=== PATIENT | female | born 1960 | race Caucasian/White ===

== ENCOUNTER 2017-10-20 22:21 | Emergency (ER) | payer OTHER ==
[2017-10-20 22:57] VITALS: BP 152/82; PULSE 99; BMI 33.8
[2017-10-20] MEDS ORDERED: SODIUM CHLORIDE 1,000 ML IV STA (22:57)
--- NOTE | 2017-10-20 22:57 | PDOC ---
History of Present Illness - General History Source: Patient Exam Limitations: No Limitations <Cait Cummings - Last Filed: 10/20/17 22:56> - History of Present Illness Initial Comments: 10/20/17 23:14 Ms. Wasserman is a 57 yo female w/ pmh of <Kaden Saeed - Last Filed: 10/20/17 23:15> - General Chief Complaint: Abscess Boil Stated Complaint: INFECTION Time Seen by Provider: 10/20/17 22:56 Past History - Past Medical History Anemia: No Asthma: Yes Cancer: No Cardiac Disorders: Yes (mvp) CVA: No COPD: No CHF: No Dementia: No Diabetes: Yes (IDDM) GI Disorders: No Disorders: No HTN: Yes Hypercholesterolemia: No Liver Disease: No Seizures: No - Surgical History Abdominal Surgery: No Appendectomy: No Cardiac Surgery: No Cholecystectomy: No Lung Surgery: No Neurologic Surgery: No Orthopedic Surgery: Yes (left carple tunnel, exc bone) - Immunization History Td Vaccination: Yes Immunization Up to Date: No - Suicide/Smoking/Psychosocial Hx Smoking Status: No Smoking History: Never smoked Have you smoked in the past 12 months: No Number of Cigarettes Smoked Daily: 0 Hx Alcohol Use: Yes (rarely) Drug/Substance Use Hx: No Substance Use Type: Alcohol Hx Substance Use Treatment: No <Cait Cummings - Last Filed: 10/20/17 22:56> <Kaden Saeed - Last Filed: 10/20/17 23:15> - Past Medical History Allergies/Adverse Reactions: Allergies Allergy/AdvReac Type Severity Reaction Status Date / Time No Known Drug Allergies Allergy Verified 08/03/13 02:50 sesame seeds Allergy unknown Uncoded 08/02/13 14:40 Home Medications: Ambulatory Orders Aspirin 81 mg PO DAILY 08/02/13 Montelukast Na [Singulair -] 10 mg PO HS 08/02/13 Salmeterol/Fluticasone [Advair 100Mcg/50Mcg -] 1 inh PO BID 08/02/13 Tiotropium [place] [Spiriva] 1 inh PO DAILY 08/02/13 Calcium 250Mg/Vit-D 125 Units [Oscal 250 mg+D -] 2 combo PO DAILY #0 tablet Amlodipine Besylate [Norvasc -] 5 mg PO DAILY 10/20/17 Cholecalciferol (Vitamin D3) [Vitamin D3 -] 400 unit PO WEEKLY 10/20/17 Cyclobenzaprine HCl [Flexeril -] 10 mg PO HS 10/20/17 Fenofibrate 150 mg PO 10/20/17 Insulin Aspart [Novolog] 126 unit SQ AC 10/20/17 Insulin Degludec [Tresiba Flextouch U-100] 75 unit SQ AM 10/20/17 Levothyroxine [Synthroid -] 125 mcg PO DAILY 10/20/17 Losartan/Hydrochlorothiazide [Losartan-Hctz 100-25 mg Tab] 1 each PO DAILY 10/20 Oxycodone HCl/Acetaminophen [Percocet 10-325 mg Tablet] 1 each PO PRN PRN Pravastatin Sodium 20 mg PO HS 10/20/17 predniSONE [Deltasone -] 5 mg PO DAILY 10/20/17 *Physical Exam - Vital Signs Last Vital Signs Temp Pulse Resp BP Pulse Ox 100.6 F H 99 H 19 152/82 96 10/20/17 22:25 10/20/17 22:25 10/20/17 22:25 10/20/17 22:25 10/20/17 22:25 <Kaden Saeed - Last Filed: 10/20/17 23:15> *DC/Admit/Observation/Transfer <Cait Cummings - Last Filed: 10/20/17 22:56> <Kaden Saeed - Last Filed: 10/20/17 23:15> - Discharge Dispostion Condition at time of disposition: Stable
[2017-10-20] MEDS ORDERED: ALBUTEROL SO4 2.5/IPRATROPIUM 0.5 INH SOL 3 ML VIAL.NEB. NEB ONE (23:17)
--- NOTE | 2017-10-20 23:22 | PDOC ---
History of Present Illness - General Chief Complaint: Abscess Boil Stated Complaint: INFECTION Time Seen by Provider: 10/20/17 22:56 - History of Present Illness Initial Comments: 10/20/17 23:17 Ms. Wasserman is a 57 yo female w/ pmh of Asthma, HTN, HLD, DM who presents for evaluation of a 2 day history of abscess to right of umbilicus. She reports that she initially thought it was a pimple and tried to pop it and that she has since experienced 2 days of pain at site with fever today. Denies any other symptoms; Ms. Wasserman reports she checked her blood sugar yesterday and found it in the 120's, however she has neglected to take any medications today or check her blood sugars. The patient denies chest pain, shortness of breath, headache and dizziness. Denies chills, nausea, vomit, diarrhea and constipation. Denies dysuria, frequency, urgency and hematuria. Allergies: NKDA Past History - Past Medical History Allergies/Adverse Reactions: Allergies Allergy/AdvReac Type Severity Reaction Status Date / Time No Known Drug Allergies Allergy Verified 08/03/13 02:50 sesame seeds Allergy unknown Uncoded 08/02/13 14:40 Home Medications: Ambulatory Orders Aspirin 81 mg PO DAILY 08/02/13 Montelukast Na [Singulair -] 10 mg PO HS 08/02/13 Salmeterol/Fluticasone [Advair 100Mcg/50Mcg -] 1 inh PO BID 08/02/13 Tiotropium [place] [Spiriva] 1 inh PO DAILY 08/02/13 Calcium 250Mg/Vit-D 125 Units [Oscal 250 mg+D -] 2 combo PO DAILY #0 tablet Amlodipine Besylate [Norvasc -] 5 mg PO DAILY 10/20/17 Cholecalciferol (Vitamin D3) [Vitamin D3 -] 400 unit PO WEEKLY 10/20/17 Cyclobenzaprine HCl [Flexeril -] 10 mg PO HS 10/20/17 Fenofibrate 150 mg PO 10/20/17 Insulin Aspart [Novolog] 126 unit SQ AC 10/20/17 Insulin Degludec [Tresiba Flextouch U-100] 75 unit SQ AM 10/20/17 Levothyroxine [Synthroid -] 125 mcg PO DAILY 10/20/17 Losartan/Hydrochlorothiazide [Losartan-Hctz 100-25 mg Tab] 1 each PO DAILY 10/20 Oxycodone HCl/Acetaminophen [Percocet 10-325 mg Tablet] 1 each PO PRN PRN Pravastatin Sodium 20 mg PO HS 10/20/17 predniSONE [Deltasone -] 5 mg PO DAILY 10/20/17 Clindamycin [Cleocin -] 300 mg PO TID #21 capsule 10/21/17 Anemia: No Asthma: Yes Cancer: No Cardiac Disorders: Yes (mvp) CVA: No COPD: No CHF: No Dementia: No Diabetes: Yes (IDDM) GI Disorders: No Disorders: No HTN: Yes Hypercholesterolemia: No Liver Disease: No Seizures: No - Surgical History Abdominal Surgery: No Appendectomy: No Cardiac Surgery: No Cholecystectomy: No Lung Surgery: No Neurologic Surgery: No Orthopedic Surgery: Yes (left carple tunnel, exc bone) - Immunization History Td Vaccination: Yes Immunization Up to Date: No - Suicide/Smoking/Psychosocial Hx Smoking Status: No Smoking History: Never smoked Have you smoked in the past 12 months: No Number of Cigarettes Smoked Daily: 0 Hx Alcohol Use: Yes (rarely) Drug/Substance Use Hx: No Substance Use Type: Alcohol Hx Substance Use Treatment: No Review of Systems - Review of Systems Comments:: 10/20/17 23:20 GENERAL/CONSTITUTIONAL: +Fever as described. No weakness. HEAD, EYES, EARS, NOSE AND THROAT: No change in vision. No ear pain or discharge. No sore throat. CARDIOVASCULAR: No chest pain or shortness of breath RESPIRATORY: No cough, wheezing, or hemoptysis. GASTROINTESTINAL: No nausea, vomiting, diarrhea or constipation. GENITOURINARY: No dysuria, frequency, or change in urination. MUSCULOSKELETAL: No joint or muscle swelling or pain. No neck or back pain. SKIN: +Abscess to right of umbilicus with pain at site. NEUROLOGIC: No headache, vertigo, loss of consciousness, or change in strength/ sensation. ENDOCRINE: No increased thirst. No abnormal weight change HEMATOLOGIC/LYMPHATIC: No anemia, easy bleeding, or history of blood clots. ALLERGIC/IMMUNOLOGIC: No hives or skin allergy. *Physical Exam - Vital Signs Last Vital Signs Temp Pulse Resp BP Pulse Ox 100.6 F H 99 H 19 152/82 96 10/20/17 22:25 10/20/17 22:25 10/20/17 22:25 10/20/17 22:25 10/20/17 22:25 - Physical Exam Comments: 10/20/17 23:20 GENERAL: Awake, alert, and fully oriented, in no acute distress HEAD: No signs of trauma, normocephalic, atraumatic EYES: PERRLA, EOMI, sclera anicteric, conjunctiva clear ENT: Auricles normal inspection, hearing grossly normal, nares patent, oropharynx clear without exudates. Moist mucosa NECK: Normal ROM, supple, no lymphadenopathy, JVD, or masses LUNGS: No distress, speaks full sentences, clear to auscultation bilaterally HEART: Regular rate and rhythm, normal S1 and S2, no murmurs, rubs or gallops, peripheral pulses normal and equal bilaterally. ABDOMEN: +Approximate 2cm fluctuant abscess noted to patient right of umbilicus. Significant surrounding erythma noted as well. Abdomen otherwise soft , nontender, with normoactive bowel sounds. No guarding, no rebound. No masses EXTREMITIES: Normal inspection, Normal range of motion, no edema. No clubbing or cyanosis. NEUROLOGICAL: Cranial nerves II through XII grossly intact. Normal speech, normal gait, no focal sensorimotor deficits SKIN: Warm, Dry, normal turgor, no rashes or lesions noted. ED Treatment Course - LABORATORY CBC & Chemistry Diagram: 10/21/17 00:35 10/21/17 00:35 Medical Decision Making - Medical Decision Making 10/20/17 23:22 Ms. Wasserman is a 57 yo female w/ pmh as described who presents for evaluation of abscess. Noted to have fever and tachycardia on presentation. Sepsis workup started. 10/21/17 00:17 Patient signed out to Dr. Calloway for further care. *DC/Admit/Observation/Transfer Diagnosis at time of Disposition: Cellulitis Qualifiers: Site of cellulitis: unspecified site Qualified Code(s): L03.90 - Cellulitis, unspecified - Discharge Dispostion Disposition: AGAINST MEDICAL ADVICE Condition at time of disposition: Stable - Prescriptions Prescriptions: Clindamycin [Cleocin -] 300 mg PO TID #21 capsule - Referrals Referrals: Dylan Garcia [Primary Care Provider] - - Patient Instructions Printed Discharge Instructions: DI for Cellulitis -- Adult Additional Instructions: Please return to the ER if you experience concerning or worsening symptoms including worsening pain, fevers, or chills. We have sent a prescription to your pharmacy for antibiotics that you should take as directed. Please call to schedule a follow up appointment with your primary care provider within 2-3 days to discuss your ER visit and further management of your symptoms. - Post Discharge Activity
--- NOTE | 2017-10-21 00:24 | PDOC ---
*Physical Exam - Vital Signs Last Vital Signs Temp Pulse Resp BP Pulse Ox 100.6 F H 99 H 19 152/82 96 10/20/17 22:25 10/20/17 22:25 10/20/17 22:25 10/20/17 22:25 10/20/17 22:25 - Physical Exam Comments: 10/21/17 01:37 General Appearance: Nourished. No Apparent Distress HEENT: No Pharyngeal Erythema, Tonsillar Exudate, Tonsillar Erythema Neck: No Cervical Lymphadenopathy Respiratory/Chest: Lungs Clear, Normal Breath Sounds. No Crackles, Rales, Rhonchi, Wheezing Cardiovascular: Regular Rhythm, Regular Rate. No Murmur, Gallops, Rubs Gastrointestinal/Abdominal: Normal Bowel Sounds, Soft. Small abscess at the umbilicus with surrounding erythema, warmth. No Guarding, Rebound, Tenderness Musculoskeletal: No CVA Tenderness Extremity: Normal Capillary Refill Integumentary: Normal Color, Dry, Warm Neurologic: Fully Oriented, Alert, Normal Mood/Affect, Normal Response, ED Treatment Course - LABORATORY CBC & Chemistry Diagram: 10/21/17 00:35 10/21/17 00:35 Progress Note - Progress Note Progress Note: The patient is a 57 year old female with a history of DM who presents for evaluation of an abscess. The patient is pending lab results and likely admission for a surrounding cellulitis. Medical Decision Making - Medical Decision Making 10/21/17 03:50 The patient states that she wishes to leave AMA. We discussed the benefits of admission and risks of leaving AMA and the patient continued to wish to leave AMA. The patient has received a dose of iv clindamycin here in the ER and we have sent a prescription to the patient's pharmacy for PO clindamycin. We have marked the patient's cellulitis with a pen and gave the patient strict return precautions and the patient stated she would return to the ER in 2 days for a wound check. The patient signed the AMA form and her IV was removed. *DC/Admit/Observation/Transfer Diagnosis at time of Disposition: Cellulitis Qualifiers: Site of cellulitis: unspecified site Qualified Code(s): L03.90 - Cellulitis, unspecified - Discharge Dispostion Disposition: AGAINST MEDICAL ADVICE Condition at time of disposition: Stable Decision to Admit order: Yes - Prescriptions Prescriptions: Clindamycin [Cleocin -] 300 mg PO TID #21 capsule - Referrals Referrals: Dylan Garcia [Primary Care Provider] - - Patient Instructions Printed Discharge Instructions: DI for Cellulitis -- Adult Additional Instructions: Please return to the ER if you experience concerning or worsening symptoms including worsening pain, fevers, or chills. We have sent a prescription to your pharmacy for antibiotics that you should take as directed. Please call to schedule a follow up appointment with your primary care provider within 2-3 days to discuss your ER visit and further management of your symptoms. - Post Discharge Activity
[2017-10-21 00:37] VITALS: TEMP 100.9
[2017-10-21] MEDS ORDERED: ALBUTEROL SO4 2.5/IPRATROPIUM 0.5 INH SOL 3 ML VIAL.NEB. NEB ONE (00:38)
[2017-10-21 00:45] LABS: BASO % 0.8 % (0-2.0); EOS % 0.8 % (0-4.5); HEMATOCRIT 38.3 % (32.4-45.2); HEMOGLOBIN 12.9 GM/dL (10.7-15.3); LYMPH % 24.8 % (8-40); MCH 30.1 pg (25.7-33.7); MCHC 33.6 g/dl (32.0-36.0); MEAN CELL VOLUME 89.3 fl (80-96); MEAN PLT VOLUME 9.1 fl (7.5-11.1); MONO % 5.9 % (3.8-10.2); NEUT % 67.7 % (42.8-82.8); PLATELET COUNT 308 K/MM3 (134-434); RBC 4.29 M/mm3 (3.60-5.2); RDW 13.4 % (11.6-15.6); WHITE BLOOD COUNT 13.1 K/mm3 (4.0-10.0)
[2017-10-21 00:47] LABS: URINE APPEARANCE CLEAR; URINE BILIRUBIN NEGATIVE (<2.0 mg/dL); URINE COLOR YELLOW; URINE GLUCOSE (UA) 3+ (NEGATIVE); URINE KETONE NEGATIVE (NEGATIVE); URINE LEUK ESTERASE NEGATIVE (NEGATIVE); URINE NITRITE NEGATIVE (NEGATIVE); URINE PROTEIN NEGATIVE (NEGATIVE); URINE UROBILINOGEN NEGATIVE mg/dL (0.2-1.0)
[2017-10-21 00:53] LABS: VENOUS PC02 44.5 mmHg (38-52); VENOUS PH 7.43 (7.32-7.42); VENOUS PO2 30.3 mmHg (28-48)
--- NOTE | 2017-10-21 01:10 | PDOC ---
Attending Attestation - Resident Resident Name: [email or web address] - ED Attending Attestation I have performed the following: I have examined & evaluated the patient, The case was reviewed & discussed with the resident, I agree w/resident's findings & plan, Exceptions are as noted - HPI HPI: 10/21/17 01:17 Ms Wasserman is a 57 yo F who presents to the ER with abdominal cellulitis Pt has a h/o IDDM who reported having a boil on her lower abdomen She squeezed it and since then she has noted skin redness and severe pain No fevers or chills at home, BUT pt has temp in the ER 10/21/17 01:20 - Physicial Exam PE: 10/21/17 01:21 On examination: Pt abdomen erythematous area measuring x cm Central area of induration which is firm and tender No purulence is expressible No other abdominal tenderness to palpation - Medical Decision Making 10/21/17 01:25 57 yo F with IDDM, presenting to the ER with abdominal wall cellulitis possible abscess Pt with fever in the ER Will do: Labs Abx Re assess 10/21/17 01:28 Laboratory Tests 10/21/17 10/21/17 00:35 00:35 WBC 13.1 H D Hgb 12.9 D Hct 38.3 Plt Count 308 VBG pH 7.43 H POC VBG pCO2 44.5 POC VBG pO2 30.3 Mixed VBG HCO3 28.8 H EKG: SR rate of 89 bpm, axis nml intervals abn - pr prolonged 206ms, no QRS prolongation, QTc nml No ST elevations or depressions Given pt IDDM and febrile, she is high risk for progression of infection Plan for observation Pt seen by hospitalist she is refusing observation stay pt signed out AMA Given Clindamycin IV Will discharge on clindamycin Clinical Impression: cellulitis, initial presentation Note: The patient insists on leaving the emergency dept and is signing out against medical advice. The patient understands the risks and complications that may result from the refusal of medical care and admission which includes and permanent disability. The patient has the mental capacity of understanding the risks of refusing care and is capable of making an informed decision. The patient was instructed to return to the emergency department should she change her mind regarding medical care or should her condition worsen. The patient signed the Against Medical Advice form.
[2017-10-21 01:11] LABS: EPI CELLS RARE /HPF (FEW); URINE BACTERIA FEW /hpf (NONE SEEN); URINE MUCUS RARE
[2017-10-21] MEDS ORDERED: CLINDAMYCIN 600MG PREMIX IVPB 600 MG/50 ML BAG IVPB ONE ×2 (01:20→01:55)
[2017-10-21 01:43] LABS: ALBUMIN 3.4 g/dl (3.4-5.0); ALK PHOS 94 U/L (45-117); ANION GAP 9 (8-16); BILIRUBIN,TOTAL 0.4 mg/dL (0.2-1.0); BLOOD UREA NITROGEN 11 mg/dL (7-18); CALCIUM 8.8 mg/dL (8.5-10.1); CHLORIDE 99 mmol/L (98-107); CO2 29 mmol/L (21-32); CREATININE 0.9 mg/dL (0.55-1.02); GLUCOSE,RANDOM 263 mg/dL (74-106); POTASSIUM 3.3 mmol/L (3.5-5.1); SGOT/AST 15 U/L (15-37); SGPT/ALT 17 U/L (12-78); SODIUM 137 mmol/L (136-145); TOT PROT 7.4 g/dl (6.4-8.2)
[2017-10-21 02:26] LABS: INR 1.1 (0.82-1.09); PROTHROMBIN TIME (PATIENT) 12.4 SEC (9.7-13.0)
[2017-10-21 02:29] LABS: ACTIVATED PTT 20.1 SECONDS (26.9-34.4)
--- NOTE | 2017-10-22 11:44 | PDOC ---
Patient Follow-up (Call Back) - Post ED Follow - Up Chief Complaint: Abscess Boil Condition at time of discharge: Stable Disposition at time of original discharge: AGAINST MEDICAL ADVICE Reason for Call Back: Abnwl. Microbiology (MRSA presumptive from wound culture and cellulitis. Pt received one dose of IV clindamycin and sent home on prescription clindamycin. Message left for patient to see how she is doing since she left AMA.)
--- NOTE | 2017-10-22 22:20 | EKG ---
Test Reason : Blood Pressure : / mmHG Vent. Rate : 089 BPM Atrial Rate : 089 BPM P-R Int : 206 ms QRS Dur : 106 ms QT Int : 374 ms P-R-T Axes : 040 000 029 degrees QTc Int : 455 ms NORMAL SINUS RHYTHM NORMAL ECG WHEN COMPARED WITH ECG OF 02-AUG-2013 17:37, NO SIGNIFICANT CHANGE WAS FOUND Confirmed by BARRIE ADAM MD ([id number]) on 10/22/2017 10:20:08 PM Referred By: Confirmed By:BARRIE ADAM MD
== END 2017-10-21 02:42 | disposition left against medical advice (07) ==
LOC: JER 22:21 → JERBED 10-21 02:16 → UNDOADMOB 10-21 02:16 → JERBED 10-21 02:20
DX: L02.211 Cutaneous abscess of abdominal wall (principal); I10 Essential (primary) hypertension; Z79.4 Long term (current) use of insulin; E78.00 Pure hypercholesterolemia, unspecified
CPT/HCPCS: 36415; 71045-TC-FY; 80053; 81003; 81015; 82009; 82803; 83605; 85025; 85610; 85730; 87040; 87070; 87086; 87186; 87205; 93005; 93010; 99282-25; J7030; J7620

== ENCOUNTER 2022-06-20 04:09 | Day surgery (SDC) | payer OTHER ==
[2022-06-16 16:57] VITALS: BMI 30.9
[2022-06-20] MEDS ORDERED: DEXAMETHASONE SOD PHOSPHATE 10 MG/1 ML VIAL ONE (11:56)
[2022-06-20] MEDS ORDERED: ROPIVACAINE HCL 0.5% 30ML VIAL ONE (11:57)
[2022-06-20] MEDS ORDERED: MIDAZOLAM HCL 2 MG/2 ML SINGLE DOSE VIAL ONE ×2 (11:57→13:12)
[2022-06-20] MEDS ORDERED: ceFAZolin SODIUM 1 GM VIAL IVPB ONE (12:15)
[2022-06-20] MEDS ORDERED: PROPOFOL 20 ML ONE ×2 (12:21→13:02)
[2022-06-20] MEDS ORDERED: ONDANSETRON 4 MG/2 ML VIAL ONE (12:24)
[2022-06-20] MEDS ORDERED: DEXAMETHASONE SOD PHOSPHATE 4 MG/1 ML VIAL ONE (12:24)
[2022-06-20] MEDS ORDERED: ceFAZolin SODIUM 1 GM VIAL ONE (12:26)
[2022-06-20] MEDS ORDERED: ALBUTEROL SO4 0.083% IH SOL 2.5 MG/3 ML VIAL.NEB. NEB ONE ×3 (14:49→16:00)
[2022-06-20 16:09] VITALS: RESP 20; TEMP 97.7
[2022-06-20 17:46] VITALS: BP 128/65; PULSE 88
[2022-06-21] MEDS ORDERED: TIOTROPIUM BROMIDE 2.5 MCG (SPIRIVA) RESPIMAT INHALER IH ONE (14:49)
== END 2022-06-20 17:30 | disposition home or self-care (01) ==
LOC: JASU-SURG 04:09
PROVIDERS: ATTEND Orthopaedic Surgery
PROC: 0LM14ZZ Reattachment of Right Shoulder Tendon, Percutaneous Endoscopic Approach (ICD-10-PCS; principal; 2022-06-20 11:00)
PROC: 0RNJ4ZZ Release Right Shoulder Joint, Percutaneous Endoscopic Approach (ICD-10-PCS; 2022-06-20 11:00)
DX: M75.41 Impingement syndrome of right shoulder (principal); M75.101 Unspecified rotator cuff tear or rupture of right shoulder, not specified as traumatic
CPT/HCPCS: 82962; 94640; 94760; C1713; J1100

== ENCOUNTER → 2023-05-25 | Day surgery (SDC) | payer OTHER | END | disposition home or self-care (01) | LOC: FMAMMOTONE 10:10 | PROVIDERS: ATTEND Family Medicine | PROC: 0HBU3ZX Excision of Left Breast, Percutaneous Approach, Diagnostic (ICD-10-PCS; principal; 2023-05-25) | DX: D24.2 Benign neoplasm of left breast (principal); N64.89 Other specified disorders of breast; R92.0 Mammographic microcalcification found on diagnostic imaging of breast | CPT/HCPCS: 19081; 76098-TC-FY; 87899; 88305-TC; A4648 ==

== ENCOUNTER 2023-07-01 16:28 | Emergency (ER) | payer OTHER ==
[2023-07-01 16:37] VITALS: BP 150/71; PULSE 99; RESP 20; TEMP 98.3; BMI 31.5
[2023-07-01] MEDS ORDERED: predniSONE 20 MG TABLET (UD) ONE (17:17)
[2023-07-01] MEDS ORDERED: AZITHROMYCIN 500 MG TABLET ONE (17:17)
[2023-07-01] MEDS: AZITHROMYCIN 250 MG TABLET PO ONE (17:21)
[2023-07-01] MEDS: predniSONE 20 MG TABLET (UD) PO ONE (17:21)
== END 2023-07-01 17:49 | disposition home or self-care (01) ==
LOC: JERFT 16:28
DX: R05.9 Cough, unspecified (principal); J01.00 Acute maxillary sinusitis, unspecified; U07.1 COVID-19
CPT/HCPCS: 0241U-QW; 71046-TC-FY; 99284-25

== ENCOUNTER 2024-03-18 04:25 | Day surgery (SDC) | payer OTHER ==
[2024-03-15 13:21] VITALS: BMI 33.0
[2024-03-18] MEDS ORDERED: MIDAZOLAM HCL 2 MG/2 ML SINGLE DOSE VIAL ONE (07:23)
[2024-03-18] MEDS ORDERED: ROCURONIUM BROMIDE 50 MG/5 ML SYRINGE ONE ×3 (07:26→10:22)
[2024-03-18] MEDS ORDERED: PROPOFOL 20 ML ONE ×3 (07:26→10:22)
[2024-03-18] MEDS ORDERED: SUGAMMADEX SODIUM 200 MG/2 ML VIAL ONE (09:28)
[2024-03-18 10:04] LABS: BASO % 1.1 % (0-2.0); EOS % 2.9 % (0-4.5); HEMATOCRIT 34.6 % (32.4-45.2); HEMOGLOBIN 11.6 GM/dL (10.7-15.3); LYMPH % 24.7 % (8-40); MCH 31.4 pg (25.7-33.7); MCHC 33.5 g/dl (32.0-36.0); MEAN CELL VOLUME 93.7 fl (80-96); MEAN PLT VOLUME 8.1 fl (7.5-11.1); MONO % 5.3 % (3.8-10.2); PLATELET COUNT 299 10^3/uL (134-434); RDW 13.4 % (11.6-15.6); WHITE BLOOD COUNT 11.4 K/mm3 (4.0-10.0)
[2024-03-18] MEDS: LACTATED RINGERS SOLUTION 1,000 ML IV SCH (12:00)
[2024-03-18] MEDS: oxyCODONE HCL 5 MG TABLET PO PRN (13:21)
[2024-03-18 13:38] VITALS: RESP 18
[2024-03-18 14:31] LABS: BASO % 1.3 % (0-2.0); EOS % 1.1 % (0-4.5); HEMATOCRIT 37.5 % (32.4-45.2); HEMOGLOBIN 12.3 GM/dL (10.7-15.3); LYMPH % 16.5 % (8-40); MCHC 32.8 g/dl (32.0-36.0); MEAN CELL VOLUME 94.4 fl (80-96); MEAN PLT VOLUME 8.4 fl (7.5-11.1); MONO % 5.3 % (3.8-10.2); NEUT % 75.8 % (42.8-82.8); PLATELET COUNT 330 10^3/uL (134-434); RBC 3.97 M/mm3 (3.60-5.2); RDW 13.5 % (11.6-15.6)
[2024-03-18 14:45] VITALS: BP 127/60; PULSE 79; TEMP 97.8
== END 2024-03-18 14:25 | disposition home or self-care (01) ==
LOC: JASU-SURG 04:25
PROVIDERS: ATTEND Obstetrics & Gynecology
PROC: 0UB04ZZ Excision of Right Ovary, Percutaneous Endoscopic Approach (ICD-10-PCS; 2024-03-18)
PROC: 8E0W4CZ Robotic Assisted Procedure of Trunk Region, Percutaneous Endoscopic Approach (ICD-10-PCS; 2024-03-18)
PROC: 0DNW4ZZ Release Peritoneum, Percutaneous Endoscopic Approach (ICD-10-PCS; 2024-03-18)
PROC: 0UB74ZZ Excision of Bilateral Fallopian Tubes, Percutaneous Endoscopic Approach (ICD-10-PCS; principal; 2024-03-18 07:30)
DX: N70.11 Chronic salpingitis (principal); N73.6 Female pelvic peritoneal adhesions (postinfective); I10 Essential (primary) hypertension; E78.5 Hyperlipidemia, unspecified; E03.9 Hypothyroidism, unspecified; K21.9 Gastro-esophageal reflux disease without esophagitis; E11.9 Type 2 diabetes mellitus without complications; J45.909 Unspecified asthma, uncomplicated; I34.1 Nonrheumatic mitral (valve) prolapse
CPT/HCPCS: 36415; 82962; 85025; 88305-TC; 94760